=== PATIENT | female | born 1965 | race Caucasian/White ===

== ENCOUNTER 2020-09-05 14:00 | Emergency (ER) | payer MEDICARE, OTHER ==
--- NOTE | 2020-09-05 14:34 | ER Document Report ---
ED Extremity Problem, Lower - General Chief Complaint: Foot Injury Stated Complaint: LEFT FOOT/ANKLE PAIN,SWELLING Time Seen by Provider: 09/05/20 14:25 Primary Care Provider: ARELI AHUMADA MD [Primary Care Provider] - Follow up as needed LEO VALENCIA MD [COMMUNITY BASED STAFF] - Follow up as needed KHADIJAH MONTEIRO DO [ACTIVE STAFF] - Follow up as needed Notes: 55 year old female presents today with complaints of left foot, ankle and knee pain - HPI Notes: 55-year-old female presents to the emergency room today for left foot, ankle and knee pain after she accidentally fell into a hole in her garage yesterday. Denies hitting her head or change in level consciousness. Reports she does have tenderness to the lateral aspect of her left foot and leg and does have a bruise on the medial aspect of her left knee. Unable to bear full weight. Patient does take baby aspirin twice a day for the last week. Has not tried any icing or heating to affected area. No open wounds or drainage. Reports pain is 2 out of 5, throbbing achy. Denies fevers, chills, headaches, wheezing, ST, URI, neck pain, weakness, bowel or bladder dysfunction, saddle anesthesia, numbness or tingling in bilateral upper or lower extremities equally, muscle paralysis, weakness in bilateral upper or lower extremities equally or rash. Denies IV drug use. - Related Data Allergies/Adverse Reactions: No Known Allergies Allergy (Verified 04/01/14 21:38) Past Medical History - General Information source: Patient - Social History Smoking Status: Unknown if Ever Smoked Family History: Reviewed & Not Pertinent - Past Medical History Cardiac Medical History: Reports: Hx Hypertension Past Surgical History: Reports: Hx Orthopedic Surgery - Immunizations Hx Diphtheria, Pertussis, Tetanus Vaccination: No Review of Systems - Review of Systems Constitutional: No symptoms reported EENT: No symptoms reported Cardiovascular: No symptoms reported Respiratory: No symptoms reported Gastrointestinal: No symptoms reported Genitourinary: No symptoms reported Female Genitourinary: No symptoms reported Musculoskeletal: See HPI Skin: No symptoms reported Hematologic/Lymphatic: No symptoms reported Neurological/Psychological: No symptoms reported Physical Exam - Vital signs Vitals: Temp Pulse Resp BP Pulse Ox 98.9 F 106 H 15 142/82 H 96 09/05/20 14:09 09/05/20 14:09 09/05/20 14:09 09/05/20 14:09 09/05/20 14:09 - Notes Notes: MEDICATIONS: I agree with the patient medications as charted by the RN. ALLERGIES: I agree with the allergies as charted by the RN. PAST MEDICAL HISTORY/PAST SURGICAL HISTORY: Reviewed and agree as charted by RN. SOCIAL HISTORY: Reviewed and agree as charted by RN. FAMILY HISTORY: No significant familial comorbid conditions directly related to patient complaint EXAM: Reviewed vital signs as charted by RN. PHYSICAL EXAMINATION: reviewed vital signs by RN GENERAL: Well-appearing, well-nourished and in no acute distress. HEAD: Atraumatic, normocephalic. EYES: Pupils equal round and reactive to light, extraocular movements intact, conjunctiva are normal. ENT: Nares patent, oropharynx clear without exudates. Moist mucous membranes. NECK: Normal range of motion, supple without lymphadenopathy LUNGS: Breath sounds clear to auscultation bilaterally and equal. No wheezes rales or rhonchi. HEART: Regular rate and rhythm without murmurs ABDOMEN: Soft, nontender, nondistended abdomen. No guarding, no rebound. No masses appreciated. Female : deferred Musculoskeletal: Normal range of motion, no pitting or edema. No cyanosis. Right knee with tenderness on patella, no pain with inversion or eversion. Slight pain with flexion not with extension. Noted ecchymosis on medial aspect of knee. left foot and ankle with swelling, tenderness on lateral aspect of foot and ankle. left ankle pain with inversion. Ecchymosis to ankle and foot on lateral aspect. Squeeze test negative bilaterally. dtr +2 BLE. Limited APROMto left ankle. distal pulses + 2 BLE equally. Full motor and sensory function of bilateral lower extremities. No noted open wounds or abrasion. Normal gait. No vascular compromise. Peroneal nerve is intact with strong eversion and plantar flexion. Negative anterior drawer test. muscle strength 5/5 in BLE equally. NEUROLOGICAL: Cranial nerves grossly intact. Normal speech, normal gait. Normal sensory, motor exams PSYCH: Normal mood, normal affect. SKIN: Warm, Dry, normal turgor, no rashes or lesions noted. Course - Re-evaluation Re-evalutation: 09/05/20 17:52 afebrile, vital stable no distress. Nurses notes reviewed. X-ray of left knee, left foot and left ankle negative for acute fracture dislocation or foreign body. Patient placed in an immobilizer and given crutches. Patient given a prescription for naproxen. Advised to elevate above level of heart, apply ice 20 minutes on 20 minutes off several times a day, alternate between Tylenol and naproxen. Discussed with patient that she should not be taking 81 mg of baby aspirin twice a day on her own accord, she needs to follow-up with her primary care provider to see if this is necessary, she states she started taking it due to having a history of anemia. Advised to follow-up with the survival specialist within the next 24 to 36 hours for reevaluation. Advised if she still having the same pain today she is having 5 days from now to return to the urgent care emergency room or go to urgent care for repeat x-ray areas of injury. Patient put in an Aircast and crutches. After performing a Medical Screening Examination, I estimate there is LOW risk for OPEN FRACTURE, COMPARTMENT SYNDROME, DEEP VENOUS THROMBOSIS, ACUTE TENDON RUPTURE, or NEUROVASCULAR INJURY thus I consider the discharge disposition reasonable. I have reevaluated this patient multiple times and no significant life threatening changes are noted. The patient and I have discussed the diagnosis and risks, and we agree with discharging home to closely follow-up with their primary doctor or the referral orthopedist with the understanding that symptoms and presentations can change. We also discussed returning to the Emergency Department immediately if new or worsening symptoms occur. We have discussed the symptoms which are most concerning (e.g., changing or worsening pain, numbness, weakness) that necessitate immediate return - Vital Signs Vital signs: Temp Pulse Resp BP Pulse Ox 98.9 F 106 H 15 142/82 H 96 09/05/20 14:09 09/05/20 14:09 09/05/20 14:09 09/05/20 14:09 09/05/20 14:09 - Laboratory Results Critical Laboratory Results Reviewed: No Critical Results - Radiology Results Critical Radiology Results Reviewed: No Critical Results Discharge - Discharge Clinical Impression: Left foot pain, Left ankle injury, Left knee pain Condition: Stable Disposition: HOME, SELF-CARE Instructions: Sprained Ankle ([facility]), Soft Ankle Splint ([facility]), Ankle Stirrup Splint ([facility]), Sprain ([facility]), Sprained Knee ([facility]) Additional Instructions: Sprain Your injury is a sprain. A sprain results from stretching or tearing of the ligaments, usually from a twisting injury. The ligaments will require time and protection in order to heal properly. Many sprains are quite disabling and should be taken seriously. The usual initial treatment of sprains is cold packs, elevation, and rest of the injured area. Your physician has assessed the seriousness of your ligament injury, and has outlined a treatment plan. Understand that this treatment may change, depending on how you progress. If a re-examination was recommended, it is important that you follow up as instructed. Call the doctor any time if there is severe pain, numbness, or loss of function in the injured area. please consult with your doctor before you take 81mg of aspirin twice a day and this maybe too much aspirin Prescriptions: Naproxen 500 mg PO BID #10 tablet Forms: Return to Work Referrals: ARELI AHUMADA MD [Primary Care Provider] - Follow up as needed LEO VALENCIA MD [COMMUNITY BASED STAFF] - Follow up as needed KHADIJAH MONTEIRO DO [ACTIVE STAFF] - Follow up as needed
--- NOTE | 2020-09-05 15:13 | RADIOLOGY REPORT (SQ) ---
EXAM DESCRIPTION: ANKLE LEFT COMPLETE IMAGES COMPLETED DATE/TIME: 09/05/2020 3:01 pm REASON FOR STUDY: s/p fall x 1 day. pain to ankle/foot COMPARISON: None. NUMBER OF VIEWS: Three views. TECHNIQUE: AP, lateral, and oblique radiographic images acquired of the left ankle. LIMITATIONS: None. FINDINGS: MINERALIZATION: Normal. BONES: No acute fracture or dislocation. Hardware in the medial mellitus and distal fibula. No worr isome bone lesions. JOINTS: Degenerative changes with joint space narrowing, sclerosis, and osteophytes. SOFT TISSUES: No soft tissue swelling. No foreign body. OTHER: No other significant finding. IMPRESSION: SURGICAL CHANGES WITH HARDWARE. DEGENERATIVE CHANGES IN THE TIBIOTALAR JOINT. NO ACUTE FINDINGS. TECHNICAL DOCUMENTATION: JOB ID: [id number] [employer]- All Rights Reserved Reading location - IP/workstation name: [email or web address]
--- NOTE | 2020-09-05 15:15 | RADIOLOGY REPORT (SQ) ---
EXAM DESCRIPTION: FOOT LEFT COMPLETE IMAGES COMPLETED DATE/TIME: 09/05/2020 3:01 pm REASON FOR STUDY: s/p fall x 1 day. pain to ankle/foot COMPARISON: None. NUMBER OF VIEWS: Three views. TECHNIQUE: AP, lateral and oblique radiographic images acquired of the left foot. LIMITATIONS: None. FINDINGS: MINERALIZATION: Normal. BONES: No acute fracture or dislocation. No worrisome bone lesions. JOINTS: No effusions. SOFT TISSUES: No soft tissue swelling. No foreign body. OTHER: No other significant finding. IMPRESSION: NEGATIVE STUDY OF THE LEFT FOOT. NO RADIOGRAPHIC EVIDENCE OF ACUTE INJURY. TECHNICAL DOCUMENTATION: JOB ID: [id number] 2010 [employer]- All Rights Reserved Reading location - IP/workstation name: [email or web address]
--- NOTE | 2020-09-05 15:15 | RADIOLOGY REPORT (SQ) ---
EXAM DESCRIPTION: KNEE LEFT 4 VIEW IMAGES COMPLETED DATE/TIME: 09/05/2020 3:01 pm REASON FOR STUDY: s/p fall x 1 day. pain to left ankle COMPARISON: None. NUMBER OF VIEWS: Four views. TECHNIQUE: AP, lateral, and both oblique radiographic images acquired of the left knee. LIMITATIONS: None. FINDINGS: MINERALIZATION: Normal. BONES: No acute fracture or dislocation. No worrisome bone lesions. JOINT: No effusion. SOFT TISSUES: No soft tissue swelling. No radio-opaque foreign body. OTHER: No other significant finding. IMPRESSION: NEGATIVE STUDY OF THE LEFT KNEE. NO RADIOGRAPHIC EVIDENCE OF ACUTE INJURY. TECHNICAL DOCUMENTATION: JOB ID: [id number] 2010 [employer]- All Rights Reserved Reading location - IP/workstation name: [email or web address]
[2020-09-05 16:02] VITALS: BP 125/75
== END 2020-09-05 16:04 | disposition home or self-care (01) ==
LOC: ER 14:00
DX: S99.912A Unspecified injury of left ankle, initial encounter (principal); M25.562 Pain in left knee; M79.672 Pain in left foot; W17.2XXA Fall into hole, initial encounter; Y92.094 Garage of other non-institutional residence as the place of occurrence of the external cause; I10 Essential (primary) hypertension
CPT/HCPCS: 99283